=== PATIENT | female | born 1990 | race Two or more races ===

== ENCOUNTER 2022-08-01 12:24 | Outpatient (CLI) | payer OTHER | END 2022-08-01 14:01 | disposition home or self-care (01) | LOC: PRENATAL 12:24 | PROVIDERS: ATTEND Obstetrics & Gynecology Maternal & Fetal Medicine | DX: O35.9XX0 Maternal care for (suspected) fetal abnormality and damage, unspecified, not applicable or unspecified (principal); O35.3XX0 Maternal care for (suspected) damage to fetus from viral disease in mother, not applicable or unspecified; O45.90 Premature separation of placenta, unspecified, unspecified trimester; Z3A.20 20 weeks gestation of pregnancy ==

== ENCOUNTER 2022-10-25 13:39 | Outpatient (CLI) | payer OTHER | END 2022-10-25 17:18 | disposition home or self-care (01) | LOC: PRENATAL 13:39 | PROVIDERS: ATTEND Obstetrics & Gynecology Maternal & Fetal Medicine | DX: O26.849 Uterine size-date discrepancy, unspecified trimester (principal); O35.9XX0 Maternal care for (suspected) fetal abnormality and damage, unspecified, not applicable or unspecified; O36.8199 Decreased fetal movements, unspecified trimester, other fetus; O43.90 Unspecified placental disorder, unspecified trimester; Z3A.32 32 weeks gestation of pregnancy ==

== ENCOUNTER 2022-11-05 19:21 | Outpatient (CLI) | payer OTHER | END 2022-11-05 20:38 | disposition home or self-care (01) | LOC: NST 19:21 | PROVIDERS: ATTEND Obstetrics & Gynecology | DX: Z34.83 Encounter for supervision of other normal pregnancy, third trimester (principal) ==

== ENCOUNTER 2022-12-05 06:28 | Inpatient (IN) | payer OTHER ==
[~2022-12-05] VITALS: Ht 167.6 cm; Wt 3.2 kg
[2022-12-05] MEDS ORDERED: PRENATAL TABLE1 EAC1 PO (07:38)
[2022-12-05] MEDS ORDERED: VALTREX1000 MG PO (07:38)
[2022-12-08] MEDS ORDERED: NAPR500T14 PO (10:23)
[2022-12-08] MEDS ORDERED: Tylenol #3 PO (10:23)
== END 2022-12-08 10:24 | disposition home or self-care (01) | DRG 787 ==
LOC: LDR 06:28 → O/R 13:29 → OB/GYN 15:52
PROVIDERS: Obstetrics & Gynecology; ADMIT Student in an Organized Health Care Education/Training Program; ATTEND Student in an Organized Health Care Education/Training Program
PROC: 4A1HXCZ Monitoring of Products of Conception, Cardiac Rate, External Approach (ICD-10-PCS; 2022-12-05)
PROC: 10D00Z1 Extraction of Products of Conception, Low, Open Approach (ICD-10-PCS; principal; 2022-12-05 12:30)
DX: O32.1XX0 Maternal care for breech presentation, not applicable or unspecified (principal); O41.03X0 Oligohydramnios, third trimester, not applicable or unspecified; Z3A.38 38 weeks gestation of pregnancy; Z37.0 Single live birth; Z20.822 Contact with and (suspected) exposure to COVID-19